=== PATIENT | female | born 1965 | race Two or more races ===

== ENCOUNTER 2020-03-12 20:00 | Emergency (ER) | payer OTHER, SELFPAY ==
[2020-03-12 21:41] LABS: Basophils Absolute Auto 0.1 X10*3/uL (0.0-0.2); Basophils Percent Auto 0.6 % (0-2); Eosinophils Absolute Auto 0.1 X10*3/uL (0.0-0.4); Eosinophils Percent Auto 0.9 % (0-4); Hematocrit 42.6 % (37-47); Hemoglobin 13.8 g/dl (12.0-16.0); Imm Gran Abs Auto 0.08 X10*3/uL (0.00-0.03); Imm Gran Pct Auto 0.6 % (0.0-0.4); Lymphocytes Absolute Auto 3.4 X10*3/uL (1.2-4.9); Lymphocytes Percent Auto 26.1 % (20-40); MANUAL DIFF FLAG NO; Mean Corpuscular HGB Conc 32.4 g/dl (31.0-35.0); Mean Corpuscular Hemoglobin 25.9 pg (27.0-33.0); Mean Corpuscular Volume 80.1 fL (80-98); Mean Platelet Volume 10.4 fL (9.4-12.3); Monocytes Absolute Auto 0.9 X10*3/uL (0.1-1.2); Neutrophils Absolute Auto 8.5 X10*3/uL (2.0-8.3); Neutrophils Percent Auto 64.8 % (45-73); Platelet Count 284 X10*3/uL (160-400); Red Blood Count 5.32 X10*6/uL (4.20-5.50); Red Cell Distribution Width 13.8 % (11.0-16.0); White Blood Count 13.1 X10*3/uL (4.8-10.8)
[2020-03-12 22:04] VITALS: BP 109/61; PULSE 100; RESP 16; TEMP 36.5; O2SAT 98; BMI 47.2
[2020-03-12 22:11] LABS: Alanine Aminotransferase 40 U/L (0-31); Albumin Level 4.3 g/dL (3.5-5.0); Alkaline Phosphatase 69 U/L (39-117); Anion Gap 13 (12-20); Aspartate Amino Transferase 19 U/L (5-31); Bilirubin Total 0.5 mg/dL (0.0-1.0); Blood Urea Nitrogen 18 mg/dL (9-16); Calcium 8.9 mg/dL (8.4-10.2); Carbon Dioxide 25 mmol/L (22-29); Chloride 108 mmol/L (96-108); Creatinine Clr Calc Pharmacy 74.9; Estimated Glomerular Filt Rate 59; Glucose Random 129 mg/dL (60-115); Potassium 4.4 mmol/l (3.3-5.1); Sodium 142 mmol/L (135-145); Total Protein 7.1 g/dL (6.5-8.0)
[2020-03-12 22:30] LABS: Glucose Urine UA NEG (NEG); Leukocyte Esterase Urine NEG (NEG); Nitrite Urine NEG (NEG); PH 5.5 (5.0-8.0); Specific Gravity - Urine >= 1.030 (1.005-1.025); Urine Blood NEG (NEG); Urine Ketones NEG (NEG); Urine Protein NEG (NEG-TRACE)
[2020-03-12 22:31] LABS: Appearance Urine CLEAR; Color Urine YELLOW
--- NOTE | 2020-03-12 23:25 | ED.ABDPAIN ---
HPI - Abdominal Pain General Chief Complaint: Abdominal Pain Stated Complaint: abdominal pain Time Seen by Provider: 03/12/20 23:25 Source: patient Mode of arrival: ambulatory History of Present Illness HPI narrative: This a 54-year-old female with significant past medical history of diabetes who was treated recently at [facility] for a left index finger infection and has been on a course of Augmentin. She states she was in her regular state of health then over the past day has began developing left lower quadrant pain that is crampy and sharp in nature with associated multiple episodes of non-bloody diarrhea. Patient states that this is not been associated with any fevers, chills, nausea, vomiting, or urinary symptoms. Patient states that she saw the surgeon today who removed a suture from her left index finger. Related Data Previous Rx's Medication Instructions Recorded ciprofloxacin HCl [Cipro] 500 mg PO Q12H 10 Days #20 tab 03/13/20 metronidazole [Flagyl] 500 mg PO Q8H 10 Days #30 tab 03/13/20 Allergies Allergy/AdvReac Type Severity Reaction Status Date / Time Chocolate Allergy Hives Verified 03/12/20 22:03 Review of Systems Review of Systems Pertinent positives and negatives as stated in HPI and 10 point review of systems is otherwise negative. Physical Exam Vital Signs: Vital Signs: Last Vital Signs Temp 97.7 F 03/12/20 22:04 Pulse 100 03/12/20 22:04 Resp 16 03/12/20 22:04 BP 109/61 03/12/20 22:04 Pulse Ox 98 03/12/20 22:04 Body Mass Index 47.2 VITAL SIGNS: Reviewed. GENERAL: Obese, Well developed, well nourished, in no acute distress. HEAD: Normocephalic/atraumatic, EYES: PERRLA, EOMI intact without pain EARS: Ext canals without abnormality, TMs non-bulging and non-erythematou NOSE: Nares patent bilateral OROPHARYNX: no oral lesions noted, posterior pharynx clear NECK: Supple, no adenopathy LUNGS: Normal breath sounds. No adventitious sounds or accessory muscle use. SpO2<98> CARDIOVASCULAR: Regular rate and rhythm without noted murmurs, no JVD or lower extremity edema. ABDOMEN: Obese, Soft, tenderness maximal at left lower quadrant without rebound but noted mild tenderness at supra umbilical as well, non-distended with bowel sounds. No rigidity. No guarding. No palpable masses or hernias noted MUSCULOSKELETAL: Left finger with dressing C/D/I EXTREMITIES: No cyanosis, clubbing or edema. SKIN: Inspection of the skin reveals no rashes NEUROLOGIC: Alert and oriented x 4. Course Course Course Narrative: This is a 54-year-old female with history and clinical presentation most consistent with colitis versus diverticulitis. On review of all investigations with the leukocytosis and clinical exam findings this remains suggestive of colitis versus diverticulitis and will proceed with CT scan of abdomen and pelvis. On review of all investigations all findings are consistent with uncomplicated diverticulitis and patient continues to tolerate oral intake and will be discharged home after receiving initial antibiotics here in the emergency department with a prescription for remainder course. She was informed of all results and findings and understands that she should follow up with primary care provider as well as Gastroenterology in 6 weeks for possible colonoscopy after resolution the diverticulitis. MDM - Abdominal Pain Lab Data Result diagrams: 03/12/20 21:33 03/12/20 21:33 Labs: Lab Results 03/12/20 03/12/20 03/12/20 Range/Units 21:33 21:33 21:33 WBC 13.1 H (4.8-10.8) X10*3/uL RBC 5.32 (4.20-5.50) X10*6/uL Hgb 13.8 (12.0-16.0) g/dl Hct 42.6 (37-47) % MCV 80.1 (80-98) fL MCH 25.9 L (27.0-33.0) pg MCHC 32.4 (31.0-35.0) g/dl RDW 13.8 (11.0-16.0) % Plt Count 284 (160-400) X10*3/uL MPV 10.4 (9.4-12.3) fL Immature Gran % (Auto) 0.6 H (0.0-0.4) % Neut % (Auto) 64.8 (45-73) % Lymph % (Auto) 26.1 (20-40) % [place] % (Auto) 7.0 (2-11) % Eos % (Auto) 0.9 (0-4) % Baso % (Auto) 0.6 (0-2) % Lymph # (Auto) 3.4 (1.2-4.9) X10*3/uL [place] # (Auto) 0.9 (0.1-1.2) X10*3/uL Eos # (Auto) 0.1 (0.0-0.4) X10*3/uL Baso # (Auto) 0.1 (0.0-0.2) X10*3/uL Abs Immat Gran (auto) 0.08 H (0.00-0.03) X10*3/uL Absolute Neuts (auto) 8.5 H (2.0-8.3) X10*3/uL Absolute Nucleated RBC 0.000 (0.0-0.012) X10*3/uL Nucleated RBC % (auto) 0.0 (0.0-0.2) /100WBC Hold Blue Top SEE NOTE Sodium 142 (135-145) mmol/L Potassium 4.4 (3.3-5.1) mmol/l Chloride 108 (96-108) mmol/L Carbon Dioxide 25 (22-29) mmol/L Anion Gap 13 (12-20) BUN 18 H (9-16) mg/dL Creatinine 0.98 (0.5-1.4) mg/dL Estim Creat Clear Calc 74.9 Estimated GFR 59 Random Glucose 129 H (60-115) mg/dL Lactic Acid (0.5-2.0) mmol/L Calcium 8.9 (8.4-10.2) mg/dL Total Bilirubin 0.5 (0.0-1.0) mg/dL AST 19 (5-31) U/L ALT 40 H (0-31) U/L Alkaline Phosphatase 69 (39-117) U/L Total Protein 7.1 (6.5-8.0) g/dL Albumin 4.3 (3.5-5.0) g/dL Urine Color Urine Appearance Urine pH (5.0-8.0) Ur Specific De[place] (1.005-1.025) Urine Protein (NEG-TRACE) MG/DL Urine Glucose (UA) (NEG) MG/DL Urine Ketones (NEG) MG/DL Urine Blood (NEG) Urine Nitrite (NEG) Ur Leukocyte Esterase (NEG) 03/12/20 03/12/20 Range/Units 21:33 22:21 WBC (4.8-10.8) X10*3/uL RBC (4.20-5.50) X10*6/uL Hgb (12.0-16.0) g/dl Hct (37-47) % MCV (80-98) fL MCH (27.0-33.0) pg MCHC (31.0-35.0) g/dl RDW (11.0-16.0) % Plt Count (160-400) X10*3/uL MPV (9.4-12.3) fL Immature Gran % (Auto) (0.0-0.4) % Neut % (Auto) (45-73) % Lymph % (Auto) (20-40) % [place] % (Auto) (2-11) % Eos % (Auto) (0-4) % Baso % (Auto) (0-2) % Lymph # (Auto) (1.2-4.9) X10*3/uL [place] # (Auto) (0.1-1.2) X10*3/uL Eos # (Auto) (0.0-0.4) X10*3/uL Baso # (Auto) (0.0-0.2) X10*3/uL Abs Immat Gran (auto) (0.00-0.03) X10*3/uL Absolute Neuts (auto) (2.0-8.3) X10*3/uL Absolute Nucleated RBC (0.0-0.012) X10*3/uL Nucleated RBC % (auto) (0.0-0.2) /100WBC Hold Blue Top Sodium (135-145) mmol/L Potassium (3.3-5.1) mmol/l Chloride (96-108) mmol/L Carbon Dioxide (22-29) mmol/L Anion Gap (12-20) BUN (9-16) mg/dL Creatinine (0.5-1.4) mg/dL Estim Creat Clear Calc Estimated GFR Random Glucose (60-115) mg/dL Lactic Acid 1.0 (0.5-2.0) mmol/L Calcium (8.4-10.2) mg/dL Total Bilirubin (0.0-1.0) mg/dL AST (5-31) U/L ALT (0-31) U/L Alkaline Phosphatase (39-117) U/L Total Protein (6.5-8.0) g/dL Albumin (3.5-5.0) g/dL Urine Color YELLOW Urine Appearance CLEAR Urine pH 5.5 (5.0-8.0) Ur Specific De[place] >= 1.030 H (1.005-1.025) Urine Protein NEG (NEG-TRACE) MG/DL Urine Glucose (UA) NEG (NEG) MG/DL Urine Ketones NEG (NEG) MG/DL Urine Blood NEG (NEG) Urine Nitrite NEG (NEG) Ur Leukocyte Esterase NEG (NEG) Discharge Plan Discharge Clinical Impression: Diverticulitis Patient Disposition: Home, Self-Care Instructions: Diverticulitis (ED), Diverticulitis Diet (ED) Additional Instructions: 1. Resume all home medications as prescribed. 2. Recommend using [id number] Tylenol/ibuprofen as needed for additional pain control, however after 24-48 hours abdominal discomfort should begin to improve as well as the diarrhea. 3. Please increase fluid hydration especially with water. 4. Please follow-up with your primary care provider by calling the office in the morning as you will need to follow-up with gastroenterology in approximately 6 weeks after resolution of your diverticulitis for further evaluation most likely by colonoscopy. Prescriptions: New ciprofloxacin HCl [Cipro] 500 mg tablet 500 mg PO Q12H 10 Days Qty: 20 RF: 0 metronidazole [Flagyl] 500 mg tablet 500 mg PO Q8H 10 Days Qty: 30 RF: 0 Referrals: Physician,Unknown [Primary Care Provider] - 2 days (Re-evaluation and likely referral to Gastroenterology for possible colonoscopy) FOR[facility]LY [facility], [facility] Past Medical History Source: nursing notes reviewed Medical History Diabetes Hypertension Social History Social History Advance Directives: No Advance Directives Information Provided: No
--- NOTE | 2020-03-13 | CT_ITS ---
EXAMINATION: CT ABDOMEN AND PELVIS WITH CONTRAST CLINICAL INFORMATION: Left lower quadrant pain COMPARISON: None TECHNIQUE: Multidetector volumetric images were obtained from the superior aspect of the liver through the pubic symphysis following administration 85 mL of Omnipaque 350 intravenous contrast. Sagittal and coronal reformatted images were obtained on the technologist's workstation. Oral contrast: No This CT examination was performed using dose optimization techniques as appropriate, variously including the following: *Automated exposure control *Adjustment of mA and/or kV according to patient size (this includes techniques or standardized protocols for targeted exams where dose is matched to indication/reason for exam; i.e. extremities or head) *Use of iterative reconstruction technique DLP: 855 mGy-cm FINDINGS: LUNG BASES: The visualized lung bases are unremarkable. LIVER, GALLBLADDER, AND BILIARY TREE: The liver is normal in size, shape, and attenuation. No focal hepatic lesion or biliary ductal dilatation is present. Cholecystectomy. PANCREAS: Unremarkable. SPLEEN: Unremarkable. ADRENAL GLANDS: Unremarkable. KIDNEYS AND URETERS: The kidneys are normal in size, shape, and attenuation. No hydronephrosis, hydroureter, or calculi seen. No perinephric stranding. BLADDER: Unremarkable. GASTROINTESTINAL TRACT: The stomach is unremarkable. Normal caliber small bowel. There is no obstruction. Colonic diverticulosis is present, greatest at the sigmoid colon. At the proximal sigmoid colon there is prominent wall thickening with adjacent inflammation. No free air or fluid collection. The appendix is not seen. ABDOMINAL WALL: No significant hernia is appreciated. LYMPH NODES: Normal. VASCULAR: Unremarkable. PELVIC VISCERA: The uterus and adnexa are unremarkable. OSSEOUS STRUCTURES: No acute or suspicious osseous abnormality. CT/CT abdomen pelvis w con IMPRESSION: Sigmoid diverticulitis. No free air or fluid collection.
[2020-03-13] MEDS: 0.9 % Sodium Chloride 1,000 ML 999 ML IV (00:52)
[2020-03-13] MEDS: iohexoL 350 MG/ML 100 ML INFUS..BTL 85 ML IV (01:17)
[2020-03-13] MEDS: levoFLOXacin 500 MG TABLET PO (02:13)
[2020-03-13] MEDS: metroNIDAZOLE 500 MG TABLET PO (02:13)
== END 2020-03-13 02:38 | disposition home or self-care (01) ==
PROVIDERS: Emergency Provider Student in an Organized Health Care Education/Training Program
DX: K57.32 Diverticulitis of large intestine without perforation or abscess without bleeding (principal); E11.9 Type 2 diabetes mellitus without complications; I10 Essential (primary) hypertension
CPT/HCPCS: 36415; 74177; 80053; 81003; 83605; 85025; 87040; 96360; 99283; 99284; Q9967

== ENCOUNTER 2020-09-19 16:20 | Emergency (ER) | payer OTHER, SELFPAY ==
[2020-09-19 16:33] VITALS: BP 141/78; PULSE 76; RESP 18; TEMP 36.3; O2SAT 98; BMI 37.8
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
[2020-09-19] MEDS: predniSONE 20 MG TABLET 40 MG PO (17:41)
[2020-09-19] MEDS: NaPROXEN 500 MG TABLET PO (17:42)
== END 2020-09-19 17:59 | disposition home or self-care (01) ==
PROVIDERS: Emergency Provider Internal Medicine; PCP Internal Medicine
DX: S39.012A Strain of muscle, fascia and tendon of lower back, initial encounter (principal); M54.16 Radiculopathy, lumbar region; E11.9 Type 2 diabetes mellitus without complications; I10 Essential (primary) hypertension; V43.52XA Car driver injured in collision with other type car in traffic accident, initial encounter; Y93.9 Activity, unspecified; Y92.410 Unspecified street and highway as the place of occurrence of the external cause; Y99.9 Unspecified external cause status
CPT/HCPCS: 99283

== ENCOUNTER 2020-09-30 18:25 | Emergency (ER) | payer OTHER, SELFPAY ==
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
[2020-09-30 19:19] VITALS: BP 145/81; PULSE 96; RESP 20; TEMP 36.3; O2SAT 97; BMI 37.8
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
[2020-09-30] MEDS: Ketorolac Tromethamine 15 MG/ML VIAL 30 MG IM (21:09)
== END 2020-09-30 21:20 | disposition home or self-care (01) ==
PROVIDERS: Emergency Provider Emergency Medicine
DX: Z04.1 Encounter for examination and observation following transport accident (principal); M54.40 Lumbago with sciatica, unspecified side
CPT/HCPCS: 72100; 73564; 96372; 99284; J1885

== ENCOUNTER 2022-07-14 20:13 | Emergency (ER) | payer OTHER, SELFPAY ==
--- NOTE | ~2022-07-14 | CT_ITS ---
EXAMINATION: CT ABDOMEN AND PELVIS WITHOUT CONTRAST CLINICAL INFORMATION: Nausea/vomiting/diarrhea and left lower quadrant tenderness. COMPARISON: CT abdomen and pelvis with contrast 03/13/2020 TECHNIQUE: Multidetector volumetric imaging was performed from the superior aspect of the liver through the pubic symphysis. Sagittal and coronal reformatted images were obtained on the technologist's workstation. This CT examination was performed using dose optimization techniques as appropriate, variously including the following: *Automated exposure control *Adjustment of mA and/or kV according to patient size (this includes techniques or standardized protocols for targeted exams where dose is matched to indication/reason for exam; i.e. extremities or head) *Use of iterative reconstruction technique DLP: 741 mGy-cm FINDINGS: LUNG BASES: The visualized lung bases are unremarkable. LIVER, GALLBLADDER, AND BILIARY TREE: The liver is normal in size, shape, and diffusely hypoattenuated. No focal hepatic lesion or biliary ductal dilatation is present. The gallbladder has been surgically removed. PANCREAS: Unremarkable. SPLEEN: Unremarkable. ADRENAL GLANDS: Unremarkable. KIDNEYS AND URETERS: The kidneys are normal in size, shape, and attenuation. No hydronephrosis, hydroureter, or calculi seen. No perinephric stranding. BLADDER: Unremarkable. GASTROINTESTINAL TRACT: There is scattered stool, gas and diverticuli seen throughout the colon without distention. The small bowel loops are normal caliber. Appendix is not visualized. The stomach is distended with recently ingested food. ABDOMINAL WALL: No significant hernia is appreciated. LYMPH NODES: Normal. VASCULAR: Unremarkable. PELVIC VISCERA: There is no free air or free fluid. The uterus is anteverted and appears unremarkable. There is no adnexal mass seen. OSSEOUS STRUCTURES: No aggressive lytic or sclerotic process seen. There is mild posterior spondylosis L5-S1 disc level. CT/CT abdomen pelvis wo IV con IMPRESSION: 1. No acute intra-abdominal process seen. 2. Diffuse hepatic steatosis without focal lesion. 3. Scattered colonic diverticulosis without diverticulitis. Fleischner guidelines were followed.
[2022-07-14 20:32] VITALS: BP 118/88; PULSE 130; RESP 18; TEMP 36.2; O2SAT 97; BMI 45.3
--- NOTE | 2022-07-14 20:33 | ED_ITS ---
HPI - Nausea/Vomiting/Diarrhea General Chief complaint: Nausea/Vomiting/Diarrhea <VINAY Kearns - Last Filed: 07/14/22 20:36> Stated complaint: Vomiting, diarrhea, dehydrated <VINAY Kearns - Last Filed: 07/14/22 20:36> Time Seen by Provider: 07/14/22 22:24 <VINAY Kearns - Last Filed: 07/14/22 20:36> Source: patient <Garret Lerner MD - Last Filed: 07/15/22 01:51> Mode of arrival: ambulatory <Garret Lerner MD - Last Filed: 07/15/22 01:51> Limitations: no limitations <Garret Lerner MD - Last Filed: 07/15/22 01:51> History of Present Illness HPI Narrative: Patient came here for nausea multiple episodes of vomiting and watery diarrhea since yesterday evening unable to take any p.o. fluids today diffuse abdominal cramps no fever no chills no other family member sick <Garret Lerner MD - Last Filed: 07/15/22 01:51> Related Data Home medications: Previous Rx's Medication Instructions Recorded ciprofloxacin HCl 500 mg tablet 500 mg PO Q12H 10 days #20 tabs 03/13/20 (Cipro) metronidazole 500 mg tablet 500 mg PO Q8H 10 days #30 tabs 03/13/20 (Flagyl) cyclobenzaprine 5 mg tablet 5 mg PO TID PRN muscle spasm #5 09/19/20 tabs naproxen 500 mg tablet 500 mg PO BID PRN pain #14 tabs 09/19/20 prednisone 20 mg tablet 40 mg PO DAILY 4 days #8 tabs 09/19/20 cyclobenzaprine 10 mg tablet 10 mg PO TID PRN muscle spasm #10 09/30/20 tabs ibuprofen 600 mg tablet 600 mg PO Q8H PRN pain #20 tabs 09/30/20 prednisone 20 mg tablet 40 mg PO DAILY #10 tabs 09/30/20 loperamide 2 mg tablet (Diamode) 2 mg PO Q6H PRN loose stool #10 07/15/22 tabs ondansetron 4 mg disintegrating 4 mg PO Q6-8H PRN nausea and 07/15/22 tablet vomiting #10 tabs <VINAY Kearns - Last Filed: 07/14/22 20:36> Allergies/Adverse reactions: Allergies Allergy/AdvReac Type Severity Reaction Status Date / Time Chocolate Allergy Hives Verified 07/14/22 20:34 <VINAY Kearns - Last Filed: 07/14/22 20:36> Review of Systems Review of Systems: Yes all other systems are reviewed and are negative <Garret Lerner MD - Last Filed: 07/15/22 01:51> [facility] Past Medical History Medical History: Medical History Diabetes Hypertension <VINAY Kearns - Last Filed: 07/14/22 20:36> Social History Social History: Social History Alcohol intake: current Alcohol intake frequency: holidays/special occasions only Smoked in Last 30 Days: No Use of substances other than those prescribed or required for medical reasons: No Any prior treatment program specific to substance use: No Advance Directives: No Advance Directives Information Provided: Yes <VINAY Kearns - Last Filed: 07/14/22 20:36> Physical Exam Vital Signs: Vital Signs: Last Vital Signs Temp 97.1 F 07/14/22 20:32 Pulse 86 07/14/22 22:56 Resp 17 07/14/22 22:56 BP 100/62 07/14/22 22:56 Pulse Ox 98 07/14/22 22:56 O2 Del Method Room Air 07/14/22 22:56 BMI result Body Mass Index 45.3 <VINAY Kearns - Last Filed: 07/14/22 20:36> Vital Signs: Last Vital Signs Temp 97.1 F 07/14/22 20:32 Pulse 86 07/14/22 22:56 Resp 17 07/14/22 22:56 BP 100/62 07/14/22 22:56 Pulse Ox 98 07/14/22 22:56 O2 Del Method Room Air 07/14/22 22:56 BMI result Body Mass Index 45.3 <Garret Lerner MD - Last Filed: 07/15/22 01:51> Appearance: Alert. Oriented X3. No acute distress. Eyes: PERRLA, No Nystagmus ENT: Pharynx normal. Oral Mucosa dry Neck: Normal inspection. Neck supple. CVS: Normal heart rate and rhythm. Pulses normal. Respiratory: No respiratory distress. Equal air entry bilateral, no wheezing/rales/rhonchi Abdomen: Soft bile diffuse tender Bowel sounds are present, no mass palpable, no CVA tenderness Skin: Skin warm and dry. Normal skin color. Normal skin turgor. Extremities: No lower extremity edema. No calf tenderness Neuro: Oriented X 3. No motor deficit. No sensory deficit.No cerebellar signs , cranial nerves II-XII intact <Garret Lerner MD - Last Filed: 07/15/22 01:51> Course Course Course Narrative: RME - 57 y/o female with history of DM on Trulicity who presents to the ER for evaluation of nausea, vomiting, non-bloody, watery diarrhea and 8/10 periumbilical and lower abdominal pain that started at 6pm last night. Tried OTC imodium, prilosec, pepto, pedialyte but has been unable to keep anything down. Tachycardic in triage, LLQ tenderness. Plan: lab workup, CT scan abd/pelvis, IVF, zofran <VINAY Kearns - Last Filed: 07/14/22 20:36> Medications Administered Discontinued Medications Generic Name Dose Route Start Last Admin Trade Name Freq PRN Reason Stop Dose Admin Sodium Chloride 1,000 mls @ 999 mls/hr 07/14/22 20:45 07/14/22 23:58 Ns IVCONT 07/14/22 21:45 Infused .Q1H1M IVAN Infusion Ondansetron HCl 4 mg 07/14/22 20:32 07/14/22 22:43 Ondansetron Hcl 4 Mg/2 Ml Vial IVPUSH 07/14/22 20:33 4 mg ONCE ONE Administration <VINAY Kearns - Last Filed: 07/14/22 20:36> Medications Administered Discontinued Medications Generic Name Dose Route Start Last Admin Trade Name Freq PRN Reason Stop Dose Admin Sodium Chloride 1,000 mls @ 999 mls/hr 07/14/22 20:45 07/14/22 23:58 Ns IVCONT 07/14/22 21:45 Infused .Q1H1M IVAN Infusion Ondansetron HCl 4 mg 07/14/22 20:32 07/14/22 22:43 Ondansetron Hcl 4 Mg/2 Ml Vial IVPUSH 07/14/22 20:33 4 mg ONCE ONE Administration <Garret Lerner MD - Last Filed: 07/15/22 01:51> Medical Decision Making Medical Decision Making [facility] Narrative: Patient with acute gastroenteritis CT scan negative for acute pathology report after IV fluids and IV Zofran taking p.o. fluid discharge patient home <Garret Lerner MD - Last Filed: 07/15/22 01:51> Lab Data [facility] Lab Attestation statement: I reviewed the patient's lab results. <Garret Lerner MD - Last Filed: 07/15/22 01:51> Result Diagrams: 07/14/22 20:37 07/14/22 20:37 <VINAY Kearns - Last Filed: 07/14/22 20:36> Labs: Lab Results 07/14/22 07/14/22 Range/Units 20:37 20:37 WBC 12.4 H (4.8-10.8) X10*3/uL RBC 6.32 H (4.20-5.50) X10*6/uL Hgb 16.3 H (12.0-16.0) g/dl Hct 49.6 H (37.0-47.0) % MCV 78.5 L (80.0-98.0) fL MCH 25.8 L (27.0-33.0) pg MCHC 32.9 (31.0-35.0) g/dl RDW 15.0 (11.0-16.0) % Plt Count 287 (160-400) X10*3/uL MPV 10.4 (9.4-12.3) fL Immature Gran % (Auto) 0.4 (0.0-0.4) % Neut % (Auto) 76.5 H (45-73) % Lymph % (Auto) 13.8 L (20-40) % [place] % (Auto) 7.2 (2-11) % Eos % (Auto) 1.9 (0-4) % Baso % (Auto) 0.2 (0-2) % Lymph # (Auto) 1.7 (1.2-4.9) X10*3/uL [place] # (Auto) 0.9 (0.1-1.2) X10*3/uL Eos # (Auto) 0.2 (0.0-0.4) X10*3/uL Baso # (Auto) 0.0 (0.0-0.2) X10*3/uL Abs Immat Gran (auto) 0.05 H (0.00-0.03) X10*3/uL Absolute Neuts (auto) 9.5 H (2.0-8.3) x10*3/uL Absolute Nucleated RBC 0.000 (0.0-0.012) X10*3/uL Nucleated RBC % (auto) 0.0 (0.0-0.2) /100WBC Sodium 140 (135-145) mmol/L Potassium 4.5 (3.3-5.1) mmol/L Chloride 108 (96-108) mmol/L Carbon Dioxide 21 L (22-29) mmol/L Anion Gap 16 (12-20) BUN 18 H (9-16) mg/dL Creatinine 1.01 (0.5-1.4) mg/dL Estim Creat Clear Calc 68.3 Estimated GFR 56 Random Glucose 268 H (60-115) mg/dL Calcium 9.5 D (8.4-10.2) mg/dL Magnesium 1.6 (1.6-2.6) mg/dL Total Bilirubin 1.8 H (0.0-1.0) mg/dL Direct Bilirubin 0.4 (0.0-0.5) mg/dL AST 19 (5-31) U/L ALT 37 H (0-31) U/L Alkaline Phosphatase 75 (39-117) U/L Total Protein 7.4 (6.5-8.0) g/dL Albumin 4.4 (3.5-5.0) g/dL Lipase 18 (8-78) U/L <VINAY Kearns - Last Filed: 07/14/22 20:36> Lab Results 07/14/22 07/14/22 Range/Units 20:37 20:37 WBC 12.4 H (4.8-10.8) X10*3/uL RBC 6.32 H (4.20-5.50) X10*6/uL Hgb 16.3 H (12.0-16.0) g/dl Hct 49.6 H (37.0-47.0) % MCV 78.5 L (80.0-98.0) fL MCH 25.8 L (27.0-33.0) pg MCHC 32.9 (31.0-35.0) g/dl RDW 15.0 (11.0-16.0) % Plt Count 287 (160-400) X10*3/uL MPV 10.4 (9.4-12.3) fL Immature Gran % (Auto) 0.4 (0.0-0.4) % Neut % (Auto) 76.5 H (45-73) % Lymph % (Auto) 13.8 L (20-40) % [place] % (Auto) 7.2 (2-11) % Eos % (Auto) 1.9 (0-4) % Baso % (Auto) 0.2 (0-2) % Lymph # (Auto) 1.7 (1.2-4.9) X10*3/uL [place] # (Auto) 0.9 (0.1-1.2) X10*3/uL Eos # (Auto) 0.2 (0.0-0.4) X10*3/uL Baso # (Auto) 0.0 (0.0-0.2) X10*3/uL Abs Immat Gran (auto) 0.05 H (0.00-0.03) X10*3/uL Absolute Neuts (auto) 9.5 H (2.0-8.3) x10*3/uL Absolute Nucleated RBC 0.000 (0.0-0.012) X10*3/uL Nucleated RBC % (auto) 0.0 (0.0-0.2) /100WBC Sodium 140 (135-145) mmol/L Potassium 4.5 (3.3-5.1) mmol/L Chloride 108 (96-108) mmol/L Carbon Dioxide 21 L (22-29) mmol/L Anion Gap 16 (12-20) BUN 18 H (9-16) mg/dL Creatinine 1.01 (0.5-1.4) mg/dL Estim Creat Clear Calc 68.3 Estimated GFR 56 Random Glucose 268 H (60-115) mg/dL Calcium 9.5 D (8.4-10.2) mg/dL Magnesium 1.6 (1.6-2.6) mg/dL Total Bilirubin 1.8 H (0.0-1.0) mg/dL Direct Bilirubin 0.4 (0.0-0.5) mg/dL AST 19 (5-31) U/L ALT 37 H (0-31) U/L Alkaline Phosphatase 75 (39-117) U/L Total Protein 7.4 (6.5-8.0) g/dL Albumin 4.4 (3.5-5.0) g/dL Lipase 18 (8-78) U/L <Garret Lerner MD - Last Filed: 07/15/22 01:51> Radiology Impression Discussion of test interpretation with radiology: I have reviewed the radiologist's reading. <Garret Lerner MD - Last Filed: 07/15/22 01:51> Radiologist Impression: CT/CT abdomen pelvis wo IV con IMPRESSION: 1.? No acute intra-abdominal process seen. 2.? Diffuse hepatic steatosis without focal lesion. 3.? Scattered colonic diverticulosis without diverticulitis. ? <Garret Lerner MD - Last Filed: 07/15/22 01:51> Discharge Plan Discharge Clinical Impression: Gastroenteritis <VINAY Kearns - Last Filed: 07/14/22 20:36> Patient Disposition: Home, Self-Care <VINAY Kearns - Last Filed: 07/14/22 20:36> Instructions: Gastroenteritis (ED) <VINAY Kearns - Last Filed: 07/14/22 20:36> Additional Instructions: Drink plenty of fluid Medicine for nausea as advised Imodium for severe diarrhea Follow with PCP if not better <VINAY Kearns - Last Filed: 07/14/22 20:36> Prescriptions: New ondansetron 4 mg tablet,disintegrating 4 mg PO Q6-8H PRN (Reason: nausea and vomiting) Qty: 10 0RF loperamide [Diamode] 2 mg tablet 2 mg PO Q6H PRN (Reason: loose stool) Qty: 10 0RF No Action ciprofloxacin HCl [Cipro] 500 mg tablet 500 mg PO Q12H 10 Days Qty: 20 0RF metronidazole [Flagyl] 500 mg tablet 500 mg PO Q8H 10 Days Qty: 30 0RF naproxen 500 mg tablet 500 mg PO BID PRN (Reason: pain) Qty: 14 0RF cyclobenzaprine 5 mg tablet 5 mg PO TID PRN (Reason: muscle spasm) Qty: 5 0RF prednisone 20 mg tablet 40 mg PO DAILY 4 Days Qty: 8 0RF ibuprofen 600 mg tablet 600 mg PO Q8H PRN (Reason: pain) Qty: 20 0RF cyclobenzaprine 10 mg tablet 10 mg PO TID PRN (Reason: muscle spasm) Qty: 10 0RF prednisone 20 mg tablet 40 mg PO DAILY Qty: 10 0RF <VINAY Kearns - Last Filed: 07/14/22 20:36>
[2022-07-14 20:49] LABS: MANUAL DIFF FLAG NO
[2022-07-14 20:52] LABS: Basophils Percent Auto 0.2 % (0-2); Eosinophils Absolute Auto 0.2 X10*3/uL (0.0-0.4); Eosinophils Percent Auto 1.9 % (0-4); Hematocrit 49.6 % (37.0-47.0); Hemoglobin 16.3 g/dl (12.0-16.0); Imm Gran Abs Auto 0.05 X10*3/uL (0.00-0.03); Imm Gran Pct Auto 0.4 % (0.0-0.4); Lymphocytes Absolute Auto 1.7 X10*3/uL (1.2-4.9); Lymphocytes Percent Auto 13.8 % (20-40); Mean Corpuscular HGB Conc 32.9 g/dl (31.0-35.0); Mean Corpuscular Hemoglobin 25.8 pg (27.0-33.0); Mean Corpuscular Volume 78.5 fL (80.0-98.0); Mean Platelet Volume 10.4 fL (9.4-12.3); Monocytes Absolute Auto 0.9 X10*3/uL (0.1-1.2); Monocytes Percent Auto 7.2 % (2-11); Neutrophils Absolute Auto 9.5 x10*3/uL (2.0-8.3); Neutrophils Percent Auto 76.5 % (45-73); Platelet Count 287 X10*3/uL (160-400); Red Blood Count 6.32 X10*6/uL (4.20-5.50); White Blood Count 12.4 X10*3/uL (4.8-10.8)
[2022-07-14 21:10] LABS: Alanine Aminotransferase 37 U/L (0-31); Albumin Level 4.4 g/dL (3.5-5.0); Alkaline Phosphatase 75 U/L (39-117); Anion Gap 16 (12-20); Aspartate Amino Transferase 19 U/L (5-31); Bilirubin Direct 0.4 mg/dL (0.0-0.5); Bilirubin Total 1.8 mg/dL (0.0-1.0); Blood Urea Nitrogen 18 mg/dL (9-16); Calcium 9.5 mg/dL (8.4-10.2); Carbon Dioxide 21 mmol/L (22-29); Chloride 108 mmol/L (96-108); Creatinine Clr Calc Pharmacy 68.3; Estimated Glomerular Filt Rate 56; Glucose Random 268 mg/dL (60-115); Lipase 18 U/L (8-78); Magnesium 1.6 mg/dL (1.6-2.6); Potassium 4.5 mmol/L (3.3-5.1); Sodium 140 mmol/L (135-145); Total Protein 7.4 g/dL (6.5-8.0)
[2022-07-14] MEDS: ondansetron HCL 4 MG/2 ML VIAL IVPUSH (22:43)
[2022-07-14] MEDS: 0.9 % Sodium Chloride 1,000 ML 999 ML IVCONT (22:43)
[2022-07-14 22:56] VITALS: BP 100/62; PULSE 86; RESP 17; O2SAT 98
[2022-07-15] MEDS: Loperamide HCl 2 MG CAPSULE PO (01:58)
== END 2022-07-15 02:00 | disposition home or self-care (01) ==
PROVIDERS: Physician Assistant; Emergency Provider Internal Medicine
DX: K52.9 Noninfective gastroenteritis and colitis, unspecified (principal); R11.2 Nausea with vomiting, unspecified; E11.9 Type 2 diabetes mellitus without complications; I10 Essential (primary) hypertension; Z79.899 Other long term (current) drug therapy
CPT/HCPCS: 36415; 74176; 80048; 80076; 83690; 83735; 85025; 99284; 99285; J2405

== ENCOUNTER 2024-01-28 09:21 | Outpatient (REF) | payer OTHER, SELFPAY ==
[2024-01-28 09:57] LABS: MANUAL DIFF FLAG NO
[2024-01-28 10:23] LABS: Basophils Absolute Auto 0.1 X10*3/uL (0.0-0.2); Basophils Percent Auto 0.9 % (0-2); Eosinophils Absolute Auto 0.1 X10*3/uL (0.0-0.4); Eosinophils Percent Auto 1.1 % (0-4); Hemoglobin 14.6 g/dl (12.0-16.0); Imm Gran Abs Auto 0.04 X10*3/uL (0.00-0.03); Imm Gran Pct Auto 0.6 % (0.0-0.4); Lymphocytes Absolute Auto 1.9 X10*3/uL (1.2-4.9); Lymphocytes Percent Auto 29.3 % (20-40); Mean Corpuscular HGB Conc 33.2 g/dl (31.0-35.0); Mean Corpuscular Hemoglobin 26.2 pg (27.0-33.0); Mean Corpuscular Volume 78.9 fL (80.0-98.0); Mean Platelet Volume 10.8 fL (9.4-12.3); Monocytes Absolute Auto 0.5 X10*3/uL (0.1-1.2); Monocytes Percent Auto 7.3 % (2-11); Neutrophils Percent Auto 60.8 % (45-73); Platelet Count 234 X10*3/uL (160-400); Red Blood Count 5.58 X10*6/uL (4.20-5.50); Red Cell Distribution Width 13.8 % (11.0-16.0); White Blood Count 6.6 X10*3/uL (4.8-10.8)
[2024-01-28 11:06] LABS: Alanine Aminotransferase 28 U/L (0-31); Albumin Level 4.4 g/dL (3.5-5.0); Alkaline Phosphatase 77 U/L (39-117); Anion Gap 13 (12-20); Aspartate Amino Transferase 20 U/L (5-31); Bilirubin Total 0.9 mg/dL (0.0-1.0); Blood Urea Nitrogen 12 mg/dL (9-16); Calcium 9.9 mg/dL (8.4-10.2); Carbon Dioxide 27 mmol/L (22-29); Chloride 105 mmol/L (96-108); Cholesterol 149 mg/dL (<200); Estimated Glomerular Filt Rate 56; Glucose Random 317 mg/dL (60-115); HDL Cholesterol 45 mg/dL (>40); Iron 70 mcg/dL (30-160); Magnesium 1.9 mg/dL (1.6-2.6); Percent Iron Saturation 24 % (15-50); Potassium 4.6 mmol/L (3.3-5.1); Sodium 140 mmol/L (135-145); Total Iron Binding Capacity 295 mcg/dL (228-428); Total Protein 7.2 g/dL (6.5-8.0); Unsaturated Iron Binding 225 ug/dL
[2024-01-28 11:16] LABS: Creatinine Urine 84.96 mg/dL; Microalbum/Creatinine Ratio Ur 103.5 ug/mg cr (<30)
[2024-01-28 11:25] LABS: Ferritin 340 ng/mL (10-250)
[2024-01-28 11:26] LABS: Vitamin B12 538 pg/mL (200-900)
[2024-01-30 04:44] LABS: LDL Cholesterol Direct 86 mg/dL (<100)
[2024-02-02 14:59] LABS: Apolipoprotein B 83 mg/dL (<90)
[2024-02-03 15:03] LABS: Lipoprotein A 134 nmol/L (<75)
== END 2024-01-28 09:22 | disposition home or self-care (01) ==
LOC: HO.LAB 09:21
PROVIDERS: PCP Internal Medicine; Visit Provider Internal Medicine
DX: R79.89 Other specified abnormal findings of blood chemistry (principal); E78.00 Pure hypercholesterolemia, unspecified; F31.9 Bipolar disorder, unspecified; Z71.89 Other specified counseling; E11.21 Type 2 diabetes mellitus with diabetic nephropathy
CPT/HCPCS: 36415; 80053; 81256; 82043; 82172; 82306; 82465; 82570; 82607; 82728; 83540; 83695; 83718; 83721; 83735; 85025

== ENCOUNTER 2025-02-13 14:48 | Emergency (ER) | payer OTHER, SELFPAY ==
--- NOTE | ~2025-02-13 | CT_ITS ---
CLINICAL HISTORY: Abd Pain, ?Stone CT abdomen and pelvis with contrast Comparison: CT/REG/SR - CT ABDOMEN PELVIS WITHOUT IV CONTRAST - 07/14/22 20:46 EDT Findings: Lung bases: Clear. Liver: No focal lesions. No biliary ductal dilatation. Patent portal vein. Gallbladder: Cholecystectomy. Spleen: Normal Pancreas: No solid mass or main duct dilation. Adrenal glands: No nodules. Kidneys: No hydronephrosis. No stones. No solid mass. Mild urothelial enhancement of bilateral collecting systems. Simple cyst in the upper pole of the right kidney. Pelvic organs: Bladder wall thickening and enhancement. Peritoneum and Gastrointestinal: Colonic diverticulosis without acute diverticulitis. The appendix is not identified. No bowel obstruction, pneumoperitoneum, or ascites. Lymph nodes: No lymphadenopathy. Vessels: No abdominal aortic aneurysm. Bones and soft tissues: Multilevel degenerative changes. IMPRESSION: Cystitis and ascending pyelitis. No renal or ureteral stone. This document has been electronically signed by: Jena Hilton MD on 02/13/2025 21:05:50
[2025-02-13 14:58] VITALS: BP 119/80; PULSE 93; RESP 18; TEMP 35.9; O2SAT 97; BMI 32.4
--- NOTE | 2025-02-13 15:02 | ED_ITS ---
HPI - Female Genitourinary General Chief complaint: Urogenital-Female Stated complaint: bladder issues Time Seen by Provider: 02/13/25 19:23 History of Present Illness ED Provider: Kimber Josue NP HPI Narrative: 59-year-old female patient medical history significant for hypertension, diabetes comes to the ED for evaluation of urinary frequency, or urgency. This began acutely today, she had 4 episodes of near incontinence of urination as she was not able to make it to the bathroom and time. She reports that she noted some tissue when peeing, but was not sure if this was blood. Denies any abnormal vaginal bleeding, abnormal vaginal discharge. Denies any flank pain. No nausea, vomiting, diarrhea, constipation. No chest pain or pressure, shortness of breath. No fever, chills at home. Related Data Previous Rx's ?Medication ?Instructions ?Recorded ciprofloxacin HCl 500 mg tablet 500 mg PO Q12H 10 days #20 tabs 03/13/20 (Cipro) metronidazole 500 mg tablet 500 mg PO Q8H 10 days #30 tabs 03/13/20 (Flagyl) cyclobenzaprine 5 mg tablet 5 mg PO TID PRN muscle spa sm #5 09/19/20 tabs naproxen 500 mg tablet 500 mg PO BID PRN pain #14 t abs 09/19/20 prednisone 20 mg tablet 40 mg (2 x 20 mg) PO DAILY 4 days 09/19/20 #8 tabs cyclobenzaprine 10 mg tablet 10 mg PO TID PRN muscle s pasm #10 09/30/20 tabs ibuprofen 600 mg tablet 600 mg PO Q8H PRN pain #20 t abs 09/30/20 prednisone 20 mg tablet 40 mg (2 x 20 mg) PO DAILY # 10 tabs 09/30/20 loperamide 2 mg tablet (Diamode) 2 mg PO Q6H PRN loose stool #10 07/15/22 tabs ondansetron 4 mg disintegrating 4 mg PO Q6-8H PRN naus ea and 07/15/22 tablet vomiting #10 tabs cefpodoxime 200 mg tablet 200 mg PO Q12H 7 days #14 ta bs 02/13/25 Allergies Allergy/AdvReac Type Severity Reaction Status Date / Time Chocolate Allergy Hives Verified 02/13/25 15:04 Review of Systems 2 Review of Systems: ROS is otherwise negative unless mentioned in HPI. [facility] Past Medical History Medical History Diabetes Hypertension Social History Social History Alcohol intake: current Alcohol intake frequency: holidays/special occasions only Physical Exam 2 Exam: Exam: Nursing notes and vital signs reviewed. Constitutional: Well-appearing, NAD. Alert. Oriented X3. Eyes: EOMI. ENT: Pharynx normal. Neck: Normal inspection. Neck supple. CVS: Normal heart rate and rhythm. Pulses normal. Respiratory: No respiratory distress. Abdomen: Soft, mild tenderness to LLQ, suprapubic. Skin: Skin warm and dry. Normal skin color. Extremities: No lower extremity edema. Neuro: Oriented X 3. No motor deficit. Vital Signs: Vital Signs: Last Vital Signs Temp 97 F 02/13/25 22:16 Pulse 79 02/13/25 22:16 Resp 20 02/13/25 22:16 BP 128/70 02/13/25 22:16 Pulse Ox 99 02/13/25 22:16 O2 Del Method Room Air 02/13/25 22:16 BMI result Body Mass Index 32.4 Course Course Course Narrative: This is an RME: Additional HPI, ROS, PE not included below will be deferred to primary provider. RME assessment and note performed by: Selena Meléndez PA-C This is a 60-[id number]-female, with a hx diabetes, who presents to the ER with a complaint of dysuria, hematuria, urinary urgency. Also endorsing left sided CVA pain. Plan: Labs, UA, further ER eval needed Medications Administered Discontinued Medications Generic Name Dose Route Start Last Admin Trade Name Freq PRN Reason Stop Dose Admin Sodium Chloride 1,000 mls @ 999 mls/hr 02/13/25 19:50 02/13/25 21:01 Ns IV 02/13/25 20:50 Infused .Q1H1M ONE Infusion Ceftriaxone Sodium 1 gm/ 50 mls @ 100 mls/hr 02/13/25 21:15 02/13/25 22:06 Sodium Chloride IV 02/13/25 21:44 Infused ONCE ONE Infusion Iohexol 100 ml 02/13/25 20:21 02/13/25 20:22 Iohexol 350 Mg/Ml 100 Ml Infus..Btl IV 02/13/25 20:22 85 ml ONCE ONE Administration Ketorolac Tromethamine 15 mg 02/13/25 19:50 02/13/25 20:06 Ketorolac Tromethamine 15 Mg/Ml Vial IVPUSH 02/13/25 19:51 15 mg ONCE ONE Administration Medical Decision Making Medical Decision Making [facility] Narrative: 7:51 PM 02/13/2025 (Kimber Josue NP): I assessed this patient in the triage area. She reports having frequency of urination today and some suprapubic abdominal discomfort. She has mild tenderness to palpation over the left lower quadrant, concerning for underlying diverticulitis being mimicked by UTI. No leukocytosis. Creatinine is stable at 0.81. Denies any nausea or vomiting. We will obtain CT imaging of the abdomen, pelvis as the urinalysis shows a large amount of blood, also concerning for renal stone. She denies any vaginal bleeding. Patient is agreeable. CT ordered, as well as IV fluids. 9:30 PM: CT with evidence of cystitis and ascending pyelitis. No evidence of stone. We will give a dose of Rocephin in the ED, p.o. trial, and discharge home with oral antibiotics. We will also follow urine culture. For oral antibiotics, we will use cefpoxidime. Patient is agreeable to plan. Stressed return precautions to the ED. Differential Diagnosis Differential Diagnoses: The differential diagnosis associated with the presentation includes Cystitis, pyelonephritis, renal stone, diverticulitis Admission/Observation Consideration of admission/observation: Escalation of care including admission/observation considered (Not indicated) Lab Data [facility] Lab Attestation statement: I reviewed the patient's lab results. (Reassuring overall.) 02/13/25 16:14 02/13/25 16:14 Labs: Lab Results 02/13/25 Range/Units 16:14 WBC 8.0 (4.8-10.8) X10*3/uL RBC 5.66 H (4.20-5.50) X10*6/uL Hgb 14.4 (12.0-16.0) g/dl Hct 43.7 (37.0-47.0) % MCV 77.2 L (80.0-98.0) fL MCH 25.4 L (27.0-33.0) pg MCHC 33.0 (31.0-35.0) g/dl RDW 13.8 (11.0-16.0) % Plt Count 237 (160-400) X10*3/uL MPV 10.2 (9.4-12.3) fL Immature Gran % (Auto) 1.1 H (0.0-0.4) % Neut % (Auto) 51.9 (45-73) % Lymph % (Auto) 37.3 (20-40) % [place] % (Auto) 7.9 (2-11) % Eos % (Auto) 0.8 (0-4) % Baso % (Auto) 1.0 (0-2) % Lymph # (Auto) 3.0 (1.2-4.9) X10*3/uL [place] # (Auto) 0.6 (0.1-1.2) X10*3/uL Eos # (Auto) 0.1 (0.0-0.4) X10*3/uL Baso # (Auto) 0.1 (0.0-0.2) X10*3/uL Abs Immat Gran (auto) 0.09 H (0.00-0.03) X10*3/uL Absolute Neuts (auto) 4.1 (2.0-8.3) x10*3/uL Absolute Nucleated RBC 0.000 (0.0-0.012) X10*3/uL Nucleated RBC % (auto) 0.0 (0.0-0.2) /100WBC Sodium 138 (135-145) mmol/L Potassium 4.9 (3.3-5.1) mmol/L Chloride 102 (96-108) mmol/L Carbon Dioxide 26 (22-29) mmol/L Anion Gap 15 (12-20) BUN 19 H (9-16) mg/dL Creatinine 0.81 (0.5-1.4) mg/dL Estim Creat Clear Calc 68.8 Estimated GFR > 60 Random Glucose 267 H (60-115) mg/dL Calcium 9.8 (8.4-10.2) mg/dL Total Bilirubin 1.0 (0.0-1.0) mg/dL Direct Bilirubin 0.3 (0.0-0.5) mg/dL AST 20 (5-31) U/L ALT 17 (0-31) U/L Alkaline Phosphatase 78 (39-117) U/L Total Protein 7.5 (6.5-8.0) g/dL Albumin 4.6 (3.5-5.0) g/dL Urine Color Yellow Urine Appearance Cloudy Urine pH 5.5 (5.0-9.0) Ur Specific [place] >= 1.030 H (1.005-1.025) Urine Protein 300 (3+) H (Neg-Trace) mg/dL Urine Glucose (UA) >=1000 H (Negative) mg/dL Urine Ketones 80 (Negative) mg/dL Urine Blood Large (3+) H (Negative) Urine Nitrite Negative (Negative) Ur Leukocyte Esterase Small (1+) H (Negative) Urine RBC >20 H (0-2) /HPF Urine WBC 0-5 (0-5) /HPF Ur Squamous Epith Cells 0-2 (0-2) /HPF Urine Bacteria None Seen (None Seen) Hyaline Casts 0-2 (0-2) /LPF Urine Yeast Present Radiology Impression Discussion of test interpretation with radiology: I have reviewed the radiologist's reading. Radiologist Impression: CT Abdomen/Pelvis IMPRESSION: Cystitis and ascending pyelitis. No renal or ureteral stone. Independent Historian None External Record Review External record reviewed: Other (Prior ED notes.) Chronic Conditions Patient?s care impacted by: Diabetes and Hypertension Social Determinants Patient?s care significantly limited by Social Determinants of Health including: Problems related to primary support group Discharge Plan Discharge Clinical Impression: Cystitis, Acute pyelitis Patient Disposition: Home, Self-Care Instructions: Urinary Tract Infection in Women (DC) Additional Instructions: As we discussed, your lab work here was reassuring. The urine sample showed evidence of bacteria, but the CAT scan also showed evidence of a urinary tract infection, ascending into the kidney. We have given you a dose of IV antibiotics while in the ED, and I have prescribed you a course of oral antibiotics. Please complete the oral course of antibiotics as prescribed. If you do not feel better in the next 24-48 hours, please return to the ED for additional assessment. Prescriptions: New cefpodoxime 200 mg tablet 200 mg PO Q12H 7 Days Qty: 14 0RF Rx Instructions: must administer with a meal/food No Action ciprofloxacin HCl [Cipro] 500 mg tablet 500 mg PO Q12H 10 Days Qty: 20 0RF metronidazole [Flagyl] 500 mg tablet 500 mg PO Q8H 10 Days Qty: 30 0RF naproxen 500 mg tablet 500 mg PO BID PRN (Reason: pain) Qty: 14 0RF cyclobenzaprine 5 mg tablet 5 mg PO TID PRN (Reason: muscle spasm) Qty: 5 0RF prednisone 20 mg tablet 40 mg PO DAILY 4 Days Qty: 8 0RF ibuprofen 600 mg tablet 600 mg PO Q8H PRN (Reason: pain) Qty: 20 0RF cyclobenzaprine 10 mg tablet 10 mg PO TID PRN (Reason: muscle spasm) Qty: 10 0RF prednisone 20 mg tablet 40 mg PO DAILY Qty: 10 0RF ondansetron 4 mg tablet,disintegrating 4 mg PO Q6-8H PRN (Reason: nausea and vomiting) Qty: 10 0RF loperamide [Diamode] 2 mg tablet 2 mg PO Q6H PRN (Reason: loose stool) Qty: 10 0RF Referrals: [facility] [Provider Group, Urology] Sarahi Rangel MD [Primary Care Provider, Medical] Stand Alone Forms: Work/School Release Interventions: ED Discharge Assessment Last Done: 02/13/25 22:16 Discharge Date/Time: 02/13/25 22:17 Print Language: [place]
[2025-02-13 16:18] LABS: MANUAL DIFF FLAG NO
[2025-02-13 16:22] LABS: Appearance Urine Cloudy; Glucose Urine UA >=1000 mg/dL (Negative); PH 5.5 (5.0-9.0); Specific Gravity - Urine >= 1.030 (1.005-1.025); UMIC TRIGGER UACC YES
[2025-02-13 16:31] LABS: Hematocrit 43.7 % (37.0-47.0); Hemoglobin 14.4 g/dl (12.0-16.0); Imm Gran Abs Auto 0.09 X10*3/uL (0.00-0.03); Imm Gran Pct Auto 1.1 % (0.0-0.4); Lymphocytes Absolute Auto 3.0 X10*3/uL (1.2-4.9); Mean Corpuscular HGB Conc 33.0 g/dl (31.0-35.0); Mean Corpuscular Hemoglobin 25.4 pg (27.0-33.0); Mean Corpuscular Volume 77.2 fL (80.0-98.0); NRBC Abs Auto 0.000 X10*3/uL (0.0-0.012); NRBC Pct Auto 0.0 /100WBC (0.0-0.2); Platelet Count 237 X10*3/uL (160-400); Red Blood Count 5.66 X10*6/uL (4.20-5.50); White Blood Count 8.0 X10*3/uL (4.8-10.8)
[2025-02-13 16:36] LABS: Alanine Aminotransferase 17 U/L (0-31); Albumin Level 4.6 g/dL (3.5-5.0); Alkaline Phosphatase 78 U/L (39-117); Anion Gap 15 (12-20); Aspartate Amino Transferase 20 U/L (5-31); Blood Urea Nitrogen 19 mg/dL (9-16); Calcium 9.8 mg/dL (8.4-10.2); Carbon Dioxide 26 mmol/L (22-29); Chloride 102 mmol/L (96-108); Creatinine Clr Calc Pharmacy 68.8; Estimated Glomerular Filt Rate > 60; Potassium 4.9 mmol/L (3.3-5.1); Sodium 138 mmol/L (135-145); Total Protein 7.5 g/dL (6.5-8.0)
[2025-02-13 17:25] LABS: UACC Culture Trigger YES
[2025-02-13] MEDS: iohexoL 350 MG/ML 100 ML INFUS..BTL IV (20:22)
[2025-02-13 22:16] VITALS: BP 128/70; PULSE 79; RESP 20; TEMP 36.1; O2SAT 99
== END 2025-02-13 22:17 | disposition home or self-care (01) ==
PROVIDERS: Physician Assistant Medical; Emergency Provider Emergency Medicine; PCP Internal Medicine
DX: N30.00 Acute cystitis without hematuria (principal); N10 Acute pyelonephritis; E11.9 Type 2 diabetes mellitus without complications; I10 Essential (primary) hypertension; Z79.899 Other long term (current) drug therapy
CPT/HCPCS: 36415; 74177; 80048; 80076; 81001; 85025; 87086; 87088; 87186; 96361; 96365; 96375; 99283; 99285; J0696; J1885; Q9967

== ENCOUNTER → 2025-02-13 19:50 | Outpatient (BNV) | payer OTHER, SELFPAY | PROVIDERS: Emergency Provider Emergency Medicine; PCP Internal Medicine; Visit Provider Student in an Organized Health Care Education/Training Program | DX: N30.90 Cystitis, unspecified without hematuria (principal); N12 Tubulo-interstitial nephritis, not specified as acute or chronic | CPT/HCPCS: 74177 ==